=== PATIENT | male | born 1960 | race Caucasian/White ===

== ENCOUNTER 2017-08-23 09:38 | Emergency (ER) | payer OTHER ==
[~2017-08-23] VITALS: Ht 172.7 cm; Wt 80.7 kg
[2017-08-23 10:03] LABS: HEMATOCRIT 40.4 % (38.0-50.0); MCH 26.8 PG (29.0-34.0); MCHC 32.9 G/DL (30.0-36.0); MCV 81.5 FL (86-99); MEAN PLAT.VOLUME 9.9 uM^3 (9.0-12.4); PLATELET COUNT 313 K/uL (156-360); RBC DIS.WIDTH-CV 14.8 % (11.8-14.6); RBC DIS.WIDTH-SD 43.8 % (39-53); RED BLOOD COUNT 4.96 M/uL (4.00-5.50); WHITE BLOOD COUNT 15.3 K/uL (4.1-10.2)
[2017-08-23 10:11] LABS: CHLORIDE 106 mEq/L (99-109); POTASSIUM 4.1 mEq/L (3.7-5.4); SODIUM 143 mEq/L (136-147)
[2017-08-23 10:13] LABS: GLUCOSE 118 mg/dL (70-99)
[2017-08-23 10:15] LABS: ANION GAP 13 MEQ/L (2-14)
[2017-08-23 10:17] LABS: GFR ESTIMATE (CALCULATED) > 59 mL/min/
[2017-08-23 10:18] LABS: UREA NITROGEN (BUN) 9 mg/dL (9-23)
[2017-08-23 10:23] LABS: TROP-I INTERPRETATION NEGATIVE; TROPONIN-I < 0.01 ng/mL (0.0-0.30)
[2017-08-23 12:27] LABS: ADD MIUA? NO; BILIRUBIN NEGATIVE; BLOOD NEGATIVE; COLOR STRAW ((YELLOW)); GLUCOSE (STRIP) NEGATIVE; KETONES NEGATIVE; LEUKOCYTES NEGATIVE; NITRITE NEGATIVE; PROTEIN (STRIP) NEGATIVE; SPECIFIC GRAVITY 1.004 (1.000-1.030); UCUL ADDED? NO; UROBILINOGEN 0.2 MG/DL (0.2-1.0)
[2017-08-23 13:05] LABS: TROP-I INTERPRETATION NEGATIVE; TROPONIN-I < 0.01 ng/mL (0.0-0.30)
[2017-08-23] MEDS ORDERED: VENTOLIN HFA18 GM IH (13:10)
[2017-08-23] MEDS ORDERED: TESSALON200 MG PO (13:10)
[2017-08-23] MEDS ORDERED: ZITHROMAX Z-PA250 MG PO (13:10)
[2017-08-23 13:20] VITALS: BP 131/82
== END 2017-08-23 13:24 | disposition home or self-care (01) ==
LOC: EME 09:38
PROVIDERS: Nurse Practitioner Family
DX: J06.9 Acute upper respiratory infection, unspecified (principal); F17.200 Nicotine dependence, unspecified, uncomplicated; F32.9 Major depressive disorder, single episode, unspecified; Z96.643 Presence of artificial hip joint, bilateral; Z91.040 Latex allergy status
CPT/HCPCS: 71020; 80048; 81003; 84484; 85027; 93005; 99281; 99285